=== PATIENT | female | born 1980 | race Two or more races ===

== ENCOUNTER → 2025-05-10 | Outpatient (CLI) | payer MEDICAID, SELFPAY ==
--- NOTE | 2025-05-10 11:00 | XR_ITS ---
Examination: Diagnostic digital mammography, unilateral, left Computer aided detection 3-D breast Tomosynthesis, unilateral Date and time of exam: 2024 1058 hours INDICATIONS: Outside mammogram February 27, 2025 microcalcifications 12:00 position left breast is Technique: Nonmagnified MLO, CC views of the left breast have been obtained, reconstructed from 3-D Tomosynthesis images. R2 computer aided detection program utilized for evaluation of suspicious masses and/or abnormal calcifications. 3-D Tomosynthesis images obtained. Findings: The breast is heterogeneously dense, which may obscure small masses No definite suspicious microcalcifications Impression: BI-RADS category 3: Probably benign findings Recommend 1 additional 6 month left mammogram follow-up
== END | disposition home or self-care (01) ==
LOC: CDIM 10:36
PROVIDERS: Referring Provider Internal Medicine; Visit Provider Internal Medicine
DX: R92.332 Mammographic heterogeneous density, left breast (principal)
CPT/HCPCS: 77061; 77065; G0279